=== PATIENT | female | born 1935 | race Caucasian/White ===

== ENCOUNTER → 2017-04-12 | Outpatient (CLI) | payer MEDICARE, OTHER ==
--- NOTE | 2017-04-12 11:43 | US ---
EXAM DESCRIPTION: Abdomen,Complete CLINICAL HISTORY: R10.84 COMPARISON: None Available. TECHNIQUE: Complete abdominal ultrasound FINDINGS: The liver is normal in appearance. There is no focal hepatic mass. The gallbladder is well seen and unremarkable. There are no gallstones. There is no gallbladder wall thickening. The common bile duct is normal in caliber measuring 5.9 mm. The pancreas and the spleen are unremarkable. The kidneys are normal in size, shape, and echotexture. The IVC is unremarkable. The abdominal aorta is ectatic measuring 2.2 cm proximally. IMPRESSION: 1. Today's exam demonstrates minimal ectasia and atherosclerotic disease of the abdominal aorta. The remaining study is unremarkable. Electronically signed by: Tony Paz MD 04/12/2017 11:42 AM CDT
--- NOTE | 2017-04-12 13:35 | RAD ---
EXAM DESCRIPTION: UGI CLINICAL HISTORY: 82 years Female, DYSPHAGIA COMPARISON: None. FINDINGS: Double contrast upper GI series demonstrates normal swallowing mechanism. Tertiary contractions of the esophagus are present consistent with presbyesophagus. Mild distal esophageal stricture is present with a smooth tapered narrowing at the GE junction. However, 13 mm barium tablet passes through the esophagus without delay. No hiatal hernia was observed on today's study. Stomach and duodenum are unremarkable. No mass or ulcer is observed. IMPRESSION: Presbyesophagus and mild distal esophageal stricture Electronically signed by: Lamont Ross MD 04/12/2017 1:34 PM CDT
== END | disposition home or self-care (01) ==
LOC: US 08:12
PROVIDERS: ATTEND Family Medicine
DX: R09.89 Other specified symptoms and signs involving the circulatory and respiratory systems (principal); R13.14 Dysphagia, pharyngoesophageal phase; R10.84 Generalized abdominal pain

== ENCOUNTER 2017-06-08 11:09 | Emergency (ER) | payer MEDICARE, OTHER ==
--- NOTE | 2017-06-08 11:41 | RAD ---
EXAM DESCRIPTION: Wrist,Right 3 Views CLINICAL HISTORY: 82 yearsFemale, fall, deformity, pain COMPARISON: None. IMPRESSION: The bones are severely demineralized. There is a moderately displaced and impacted acute transverse fracture in the distal metaphysis of the radius. There is dorsal displacement of the distal fracture site of up to 5 mm. There is also a mildly displaced acute oblique fracture in the distal ulnar styloid process. No evidence of dislocation. Generalized soft tissue swelling is present. Electronically signed by: Refugio Joshi MD 06/08/2017 11:40 AM CDT
[2017-06-08] MEDS ORDERED: HYDROcodone 5MG/APAP 325MG 1 EA TAB PO ONE (12:32)
[2017-06-08 12:33] VITALS: O2SAT 94
--- NOTE | 2017-06-08 12:35 | RAD ---
EXAM DESCRIPTION: Wrist,Right 3 Views CLINICAL HISTORY: BONE RESET COMPARISON: June 08, 2017 IMPRESSION: 2 views of the right wrist show comminuted, intra-articular fracture of the distal radius with improved positioning of the fracture fragments. There is resolution of the previously noted dorsal angulation of the major distal fracture fragments. Minimally displaced avulsion fracture of the ulnar styloid process. Diffuse osteopenia of the osseous structures is seen. Electronically signed by: Kyle Estrada MD 06/08/2017 12:33 PM CDT
--- NOTE | 2017-06-08 12:35 | ED.PDOC ---
History of Present Illness - General Chief Complaint: Upper Extremity Injury Time Seen by Provider: 06/08/17 12:32 Source: patient Exam Limitations: no limitations - History of Present Illness Initial Comments: the patient is an 82-year-old female presenting to the emergency room secondary to pain in her right wrist after having fallen and trying to catch herself with it. She simply tripped and fell. She does have gross deformity of the right wrist. She has neurovascularly intact. She does have a history of osteoporosis. No significant lacerations present. No loss of consciousness present. Last solid intake was approximately 4 hours ago. Last liquid intake was 3 hours ago. Tendon functions appear to be preserved. Timing/Duration: momentarily Severity: moderate Improving Factors: immobilization Worsening Factors: movement Associated Symptoms: denies symptoms Allergies/Adverse Reactions: Allergies NO KNOWN ALLERGY Allergy (Verified 06/08/17 11:19) Home Medications: Ambulatory Orders Cvemwpqvghtwo-Sqgk-Cjgchagntq [Fioricet] 1 ea PO Q4HR PRN #60 tab 06/08/17 Review of Systems - Review of Systems Constitutional: States: no symptoms reported EENTM: States: no symptoms reported Respiratory: States: no symptoms reported Cardiology: States: no symptoms reported Gastrointestinal/Abdominal: States: no symptoms reported Genitourinary: States: no symptoms reported Musculoskeletal: States: see HPI Skin: States: no symptoms reported Neurological: States: no symptoms reported All other Systems: No Change from Baseline Physical Exam - Physical Exam General Appearance: Alert, No apparent distress Eye Exam: bilateral normal Ears, Nose, Throat: hearing grossly normal, normal pharynx Neck: full range of motion, supple Respiratory: no respiratory distress, no accessory muscle use Cardiovascular/Chest: normal peripheral pulses, no edema Peripheral Pulses: radial,right: 2+, radial,left: 2+, dorsalis pedis,right: 2+, dorsalis pedis,left: 2+ Rectal Exam: deferred Extremity: no pedal edema, no calf tenderness, normal capillary refill, other - the patient has obvious swelling and deformity of the right wrist. Neurologic: fisher gill net II-XII nml as tested, alert, normal mood/affect, oriented x 3 Skin Exam: normal color - mild abrasion on the hand Comments: Vital Signs - 8 hr 06/08/17 06/08/17 11:09 11:45 Temperature 99.1 F Pulse Rate [ 98 H Left Radial] Respiratory 20 16 Rate Blood Pressure 169/89 [Left Arm] O2 Sat by Pulse 94 L Oximetry Progress - Progress Progress: 06/08/17 12:35 the patient is an 82-year-old female presenting to the emergency room secondary to a fall with a closed distal radius fracture and ulnar styloid fracture on the right with significant deformity. Risk and benefits of external reduction have been explained to the patient and she does agree to proceed. With respiratory present the patient was preoxygenated. 8 mg of etomidate were given IV. Traction and pressure were used to help achieve adequate alignment of the right radius. Longarm splinting of the right upper extremity was performed with 90 flexion at the elbow 10 flexion at the wrist and approximately 15 ulnar deviation at the wrist. She appears to be neurovascularly intact after. She tolerated moderate sedation well. Please see respiratory and nursing notes for details. Postreduction films show improved alignment. The patient needs to follow-up with orthopedics towards the end of this week for reevaluation. She does have significant osteoporosis. At followup she would likely benefit from being switched over to a long-arm cast from the rather bulky splint that is in place currently. She will be given Fioricet for pain control and can also take ibuprofen if needed. ER warnings were given for any acute worsening. Ambulate carefully to prevent further falls. - Results/Orders Results/Orders: x-ray of the right wrist show significant comminuted and moderately displaced fracture of the distal metaphysis of the radiusof the right hand. There is also a lnar styloid fracture. Departure - Departure Clinical Impression: Wrist fracture, closed Qualifiers: Encounter type: initial encounter Laterality: right Qualified Code(s): S62.101A - Fracture of unspecified carpal bone, right wrist, initial encounter for closed fracture Disposition: Discharge to Home or Self Care Condition: Fair Departure Forms: ED Discharge - Pt. Copy, Patient Portal Self Enrollment Instructions: DI for Wrist Fracture Diet: regular diet Activity: no pushing/pulling with affected limb Referrals: Herson Garcia MD [Primary Care Provider] - 1-2 Weeks Prescriptions: Opxvovmynflki-Iudt-Fdjpiirusf [Fioricet] 1 ea PO Q4HR PRN #60 tab PRN Reason: Pain Home Medications: Ambulatory Orders Jinlnirfwqcfk-Yfwd-Ekumsgqfka [Fioricet] 1 ea PO Q4HR PRN #60 tab 06/08/17 Additional Instructions: the patient is an 82-year-old female presenting to the emergency room secondary to a fall with a closed distal radius fracture and ulnar styloid fracture on the right with significant deformity. Risk and benefits of external reduction have been explained to the patient and she does agree to proceed. With respiratory present the patient was preoxygenated. 8 mg of etomidate were given IV. Traction and pressure were used to help achieve adequate alignment of the right radius. Longarm splinting of the right upper extremity was performed with 90 flexion at the elbow 10 flexion at the wrist and approximately 15 ulnar deviation at the wrist. She appears to be neurovascularly intact after. She tolerated moderate sedation well. Please see respiratory and nursing notes for details. Postreduction films show improved alignment. The patient needs to follow-up with orthopedics towards the end of this week for reevaluation. She does have significant osteoporosis. At followup she would likely benefit from being switched over to a long-arm cast from the rather bulky splint that is in place currently. She will be given Fioricet for pain control and can also take ibuprofen if needed. ER warnings were given for any acute worsening. Ambulate carefully to prevent further falls.
[2017-06-08 13:42] VITALS: BP 168/86; TEMP 98.9
== END 2017-06-08 13:00 | disposition home or self-care (01) ==
LOC: ER 11:09
DX: S52.591A Other fractures of lower end of right radius, initial encounter for closed fracture (principal); M81.0 Age-related osteoporosis without current pathological fracture; W01.0XXA Fall on same level from slipping, tripping and stumbling without subsequent striking against object, initial encounter; Y92.9 Unspecified place or not applicable

== ENCOUNTER → 2017-06-14 | Outpatient (CLI) | payer MEDICARE, OTHER ==
--- NOTE | 2017-06-14 10:51 | RAD ---
EXAM DESCRIPTION: Wrist,Right 3 Views CLINICAL HISTORY: 82 years, Female, PAIN IN RT WRIST COMPARISON: June 08, 2017 TECHNIQUE: AP/ lateral/ oblique views of the right wrist. FINDINGS: Minimally displaced fracture of the distal radius with fiberglass splint in place with very little angulation is present as well as a nondisplaced ulnar styloid fracture. Maturing callus along the radial aspect of the radial fracture is evident. Little change from prior study is noted. New injuries or dislocation is not apparent. IMPRESSION: 1. Healing distal radial fracture in nondisplaced ulnar styloid fracture. Electronically signed by: Gray Oliveira MD 06/14/2017 10:50 AM CDT
== END ==
LOC: RAD 07:51
PROVIDERS: ATTEND Orthopaedic Surgery
DX: S52.501D Unspecified fracture of the lower end of right radius, subsequent encounter for closed fracture with routine healing (principal)

== ENCOUNTER → 2017-06-21 | Outpatient (CLI) | payer MEDICARE, OTHER ==
--- NOTE | 2017-06-22 08:50 | RAD ---
EXAM DESCRIPTION: Wrist,Right 3 Views CLINICAL HISTORY: 82 years, Female, CLOSED FX-DISTAL RADIUS right wrist COMPARISON: June 14 FINDINGS: Three views obtained. The cast has been removed. The impacted intra-articular fracture distal radius is in stable alignment with some but incomplete healing. Ulnar styloid fracture also noted. IMPRESSION: Stable alignment intra-articular fracture distal radius. Incomplete healing at this time and continued follow-up recommended. Ulnar styloid fracture Electronically signed by: Alfredo Orr MD 06/22/2017 8:48 AM CDT
== END | disposition home or self-care (01) ==
LOC: RAD 09:43
PROVIDERS: ATTEND Orthopaedic Surgery
DX: S52.501A Unspecified fracture of the lower end of right radius, initial encounter for closed fracture (principal)

== ENCOUNTER → 2017-06-28 | Outpatient (CLI) | payer MEDICARE, OTHER ==
--- NOTE | 2017-06-28 20:55 | RAD ---
EXAM DESCRIPTION: Wrist,Right 3 Views CLINICAL HISTORY: 82 years, Female, CLOSED FX OF DISTAL END OF RADIUS COMPARISON: June 21 FINDINGS: Stable appearance intra-articular fracture distal radial metaphysis. Impaction and dorsal angulation. No definitely visualized radiographic healing. Ulnar styloid avulsion. Less soft tissue swelling medially around the wrist. Radiocarpal joint space slightly narrowed presumably degenerative IMPRESSION: Stable alignment intra-articular radial fracture with no clearly seen interval radiographic healing. Ulnar styloid avulsion with less soft tissue swelling medially around the wrist. Osteopenic bones Electronically signed by: Alfredo Orr MD 06/28/2017 8:54 PM CDT
== END | disposition home or self-care (01) ==
LOC: RAD 09:51
PROVIDERS: ATTEND Orthopaedic Surgery
DX: S52.501S Unspecified fracture of the lower end of right radius, sequela (principal)

== ENCOUNTER → 2017-07-12 | Outpatient (CLI) | payer MEDICARE, OTHER ==
--- NOTE | 2017-07-12 11:24 | RAD ---
EXAM DESCRIPTION: Wrist,Right 3 Views CLINICAL HISTORY: CLOSED FRACTURE OF DISTAL END OF RADIUS COMPARISON: 28 June 2017 TECHNIQUE: 3 views right FINDINGS: Soft tissue swelling is observed about the wrists. There is evidence of a fracture of the distal radial metaphysis. It is slightly impacted. Callus formation is observed at the fracture site. Prior avulsion of the ulnar styloid process is observed. Alignment of the fractures is unchanged from the previous exam. IMPRESSION: Fractures of the radius and ulna. Some callus formation is observed at the radial fracture site. Electronically signed by: Lance King MD 07/12/2017 11:23 AM CDT
== END | disposition home or self-care (01) ==
LOC: RAD 08:00
PROVIDERS: ATTEND Orthopaedic Surgery
DX: S52.501D Unspecified fracture of the lower end of right radius, subsequent encounter for closed fracture with routine healing (principal); X58.XXXA Exposure to other specified factors, initial encounter

== ENCOUNTER → 2017-07-13 | Outpatient (CLI) | payer MEDICARE, OTHER | END | disposition home or self-care (01) | LOC: GMAH 10:36 | PROVIDERS: ATTEND Family Medicine | DX: E78.2 Mixed hyperlipidemia (principal) ==

== ENCOUNTER → 2017-08-12 | Outpatient (CLI) | payer MEDICARE, OTHER ==
--- NOTE | 2017-08-13 08:08 | RAD ---
EXAM DESCRIPTION: Wrist,Right 3 Views CLINICAL HISTORY: 82 years, Female, CLOSED FX DISTAL END OF RADIUS COMPARISON: July 12, 2017 TECHNIQUE: AP/ lateral/ oblique views of the right wrist. FINDINGS: An impacted fracture of the distal radius is present with increasing sclerosis consistent with the partial but incomplete healing with little change in alignment from prior study one month earlier. An essentially nondisplaced ulnar styloid fracture is noted. No carpal dislocation is noted. Osteopenia is present. IMPRESSION: 1. Stable alignment with partial healing of impacted distal radial fracture in near-anatomic alignment Electronically signed by: Gray Oliveira MD 08/13/2017 8:07 AM CDT
== END | disposition home or self-care (01) ==
LOC: RAD 08:45
PROVIDERS: ATTEND Orthopaedic Surgery
DX: S52.501D Unspecified fracture of the lower end of right radius, subsequent encounter for closed fracture with routine healing (principal)

== ENCOUNTER → 2017-09-09 | Outpatient (CLI) | payer MEDICARE, OTHER ==
--- NOTE | 2017-09-10 12:02 | RAD ---
EXAM DESCRIPTION: Wrist,Right 3 Views CLINICAL HISTORY: 82 years,Female ,CLOSED FX OF DISTAL END OF RADIUS COMPARISON: August 12, 2017 FINDINGS: The right wrist demonstrates transverse fracture which is slightly impacted and shifted dorsally but no change since prior study and some blurring of the fracture lines indicating healing small avulsion fracture of the ulnar styloid process as well. Stable . Soft tissues appear unremarkable. Joint spaces are mild narrowing of the radiocarpal row. And mild abutment of the ulna on the lunate and moderate loss of joint space at the base of the first metatarsal carpal. IMPRESSION: Healing transverse fracture the distal right radius with mild displacement which is stable. Mild arthritic changes between the radiocarpal row., There is some early ulnar abutment to the lunate., And moderate arthritic changes at the base of the first metacarpal Electronically signed by: Lance Leroy MD 09/10/2017 12:01 PM CDT
== END | disposition home or self-care (01) ==
LOC: RAD 08:20
PROVIDERS: ATTEND Orthopaedic Surgery
DX: S52.501D Unspecified fracture of the lower end of right radius, subsequent encounter for closed fracture with routine healing (principal); X58.XXXA Exposure to other specified factors, initial encounter

== ENCOUNTER → 2018-05-25 | Outpatient (CLI) | payer MEDICARE, OTHER ==
--- NOTE | 2018-05-25 13:31 | US ---
THYROID ULTRASOUND CLINICAL INFORMATION: This TECHNIQUE: Routine transcutaneous scannin-D and Doppler modes. COMPARISON: None. FINDINGS: Thyroid size: Right 4.6 x 2.4 x 2.0 cm. Left 3.4 x 1.3 x 0.9 cm. Isthmus 2.5 mm thickness. Texture: Heterogeneous Estimated total number of nodules >/=1 cm: 2 Number of spongiform nodules >/=2 cm not described below (TR1): 0 Number of mixed cystic and solid nodules >/=1.5 cm not described below (TR2): 0 Nodule #: 1 Maximum size: 1.7 cm; All dimensions 1.2 x 0.9 cm Location: right; mid Composition: solid/almost completely solid (2) Echogenicity: hypoechoic (2) Shape: not lsrioy-[id number]-ekhy (0) Margins: smooth (0) Echogenic foci: none (0) ACR TI-RADS total points: 4. ACR TI-RADS risk category: TR4 (4-6 points) ACR TI-RADS recommendation: Ultrasound-guided fine needle aspiration Nodule #: 2 Maximum size: 1.3 cm; All dimensions 1.1 x 0.8 cm Location: right; lower Composition: solid/almost completely solid (2) Echogenicity: hypoechoic (2) Shape: not asdjqn-qwgx-zwwp (0) Margins: ill-defined (0) Echogenic foci: none (0) ACR TI-RADS total points: 4. ACR TI-RADS risk category: TR4 (4-6 points) ACR TI-RADS recommendation: Follow-up ultrasound in 1 year Nodule #: 3 Maximum size: 0.5 cm; All dimensions 0.4 x 0.4 cm Location: left; upper Composition: mixed cystic and solid (1) Echogenicity: very hypoechoic (3) Shape: not fxminn-buyv-rtut (0) Margins: smooth (0) Echogenic foci: none (0) ACR TI-RADS total points: 4. ACR TI-RADS risk category: TR4 (4-6 points) ACR TI-RADS recommendation: No further follow-up Nodule #: 4 Maximum size: 0.7 cm; All dimensions 0.6 x 0.5 cm Location: left; mid Composition: solid/almost completely solid (2) Echogenicity: hypoechoic (2) Shape: not ruihus-aelk-zppn (0) Margins: ill-defined (0) Echogenic foci: none (0) ACR TI-RADS total points: 4. ACR TI-RADS risk category: TR4 (4-6 points) ACR TI-RADS recommendation: No further follow-up Soft tissue around the thyroid gland: No distinct solid mass or cyst. No large calcifications or parenchymal edema. Normal vascularity. No overlying skin changes. IMPRESSION: 1. Hypoechoic 1.7 cm solid nodule (# 1) in the mid right lobe. ACR TI-RADS risk category TR 4. Ultrasound-guided fine-needle aspiration sampling is recommended. Please see below.* 2. 1.2 cm hypoechoic solid nodule (# 2) in the lower right lobe. ACR TI-RADS risk category TR 4. Ultrasound follow-up in one year is recommended. 3. Nodules in the left lobe (nodules # 3 and # 4) with TI-RADS risk category TR 4. Less than 1 cm diameter, so no ultrasound follow-up is recommended. *ACR TI-RADS recommendations: TR5 (>/=7 points) - FNA if >/=1 cm, follow-up if 0.5 - 0.9 cm every year for 5 years TR4 (4-6 points) - FNA if >/=1.5 cm, follow-up if 1 - 1.4 cm in 1, 2, 3 and 5 years TR3 (3 points) - FNA if >/=2.5 cm, follow -up if 1.5 - 2.4 cm in 1, 3 and 5 years TR2 (2 points) and TR1 (0 points) - No FNA or follow-up * ACR TI-RADS recommends that no more than two nodules with the highest ACR TI-RADS total point should be biopsied and no more than four nodules should be followed. Electronically signed by: Akash Anne MD 05/25/2018 1:30 PM CDT
== END ==
LOC: US 09:09
PROVIDERS: ATTEND Family Medicine
DX: E04.1 Nontoxic single thyroid nodule (principal)

== ENCOUNTER → 2018-08-05 | Outpatient (CLI) | payer MEDICARE, OTHER ==
--- NOTE | 2018-08-05 11:05 | CT ---
EXAM DESCRIPTION: Abdoment/Pelvis w/o Contrast CLINICAL HISTORY: 83 years Female, LEFT UPPER QUADRANT PAIN COMPARISON: None available. TECHNIQUE: Contiguous 3 mm axial images were obtained from the lung bases to the level of the proximal femora without the administration of intravenous or oral contrast. Sagittal and coronal reconstructions were reviewed. FINDINGS: Limited evaluation of the solid organs due to the lack of intravenous contrast. THORAX: The imaged lower thorax demonstrates no gross abnormality. LIVER: The liver demonstrates normal size and density with no intrahepatic biliary ductal dilatation. GALLBLADDER: Surgically absent PANCREAS: Appears normal with no cystic or solid lesions. SPLEEN: Normal ADRENAL GLANDS: Normal with no nodules or masses. KIDNEYS: 3 mm nonobstructive calculus is noted in the interpolar region of the right kidney. No hydronephrosis or nephrolithiasis or perinephric fluid collections bilaterally. The visualized ureters appear grossly unremarkable. STOMACH: The stomach is well-distended with no gross abnormality. SMALL BOWEL: The small bowel loops demonstrate variable degrees of distention with no abnormal dilatation or other signs to suggest bowel obstruction. LARGE BOWEL: Numerous diverticula are noted throughout the sigmoid colon with no evidence of acute inflammation. Remainder of the colon is not well-visualized. The appendix is well-visualized and appears normal No evidence of free intraperitoneal air or fluid. RETROPERITONEUM: The abdominal aorta is nonaneurysmal with mild atherosclerosis. The inferior vena cava is normal in size and caliber. No abnormally enlarged retroperitoneal lymph nodes are identified. URINARY BLADDER:The urinary bladder is well-distended with no gross abnormality. The uterus is surgically absent. Loculated fluid density lesion measuring 6.3 x 3.2 cm noted in the right adnexal region. This could represent an ovarian cyst versus loculated free fluid. ADDITIONAL FINDINGS: None. BONES: Mild degenerative changes are identified in the visualized bones. Minimal anterolisthesis of L4 over L5 is noted. IMPRESSION: 1. 3 mm nonobstructive calculus is noted in the interpolar region of the right kidney. 2. Colonic diverticulosis. 3. Loculated fluid density lesion measuring 6.3 x 3.2 cm noted in the right adnexal region. This could represent an ovarian cyst versus loculated free fluid. Gynecologic consultation and correlation with surgical history is recommended. This exam was performed according to our departmental dose-optimization program, which includes automated exposure control, adjustment of the mA and/or kV according to patient size and/or use of iterative reconstruction technique. Electronically signed by: Renu Huggins MD 08/05/2018 11:03 AM CDT
== END ==
LOC: CT 09:00
PROVIDERS: ATTEND Family Medicine
DX: R10.12 Left upper quadrant pain (principal); N20.0 Calculus of kidney; K57.30 Diverticulosis of large intestine without perforation or abscess without bleeding

== ENCOUNTER → 2019-03-10 | Outpatient (CLI) | payer MEDICARE, OTHER ==
--- NOTE | 2019-03-11 09:58 | US ---
EXAM DESCRIPTION: Pelvic,Non-OB: Ultrasound. 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 Hysterectomy. COMPARISON: CT abdomen and pelvis 08/05/2018. TECHNIQUE: Transcutaneous scanning through the urine filled bladder. Stanton-scale and Doppler modes. FINDINGS: Uterus surgically absent. Cul-de-sac contains no fluid. Right ovary 5.8 x 4.0 x 3.9 cm. 47.1 mL. Minimal color Doppler vascularity. 3.2 x 3.0 x 4.2 cm cyst. 3.2 x 2.8 x 2.5 cm cyst. Nonvascular. No wall thickening septations or large calcifications. No adnexal mass or free fluid. Left ovary not visualized. No adnexal mass or free fluid. IMPRESSION: Enlarged right ovary with 2 simple cysts. No solid mass or fluid in the cul-de-sac or adnexa. [facility] Best Practice recommendations for follow-up of ovarian simple cysts: One year follow-up ultrasound, MRI with and without IVC, or surgical evaluation. Please see below.* *Recommendations for f/u of ovarian anechoic simple cyst, simple cyst with single thin <3 mm septation, or focal calcification in wall of cyst (1): Pre-menopause: <= 5 cm No follow-up imaging recommended >5 cm - <=7 cm US f/u annually >7 cm Consider MR w/IVC or surgical evaluation Post-menopause (>=1 year from last menstrual period): <=3 cm No follow-up imaging recommended >3 cm - <=7 cm US f/u annually >7 cm Consider MR w/IVC or surgical evaluation (1) Recommendations based on 2010 SRU Consensus Conference Statement on the Management of Asymptomatic Ovarian and Other Adnexal Cysts Imaged at US: Radiology. 2009;256(3):943-54 Electronically signed by: Akash Anne MD 03/11/2019 9:55 AM CDT
== END ==
LOC: US 09:00
PROVIDERS: ATTEND Family Medicine
DX: N83.201 Unspecified ovarian cyst, right side (principal)

== ENCOUNTER 2019-03-31 19:57 | Emergency (ER) | payer MEDICARE, OTHER ==
[2019-03-31 20:12] VITALS: TEMP 97.8
[2019-03-31 21:14] VITALS: O2SAT 97
--- NOTE | 2019-03-31 21:35 | CT ---
EXAM: CT Abdomen and Pelvis Without Intravenous Contrast CLINICAL HISTORY: 84 years old and is Female; LLQ pain with BRBPR TECHNIQUE: Axial computed tomography images of the abdomen and pelvis without intravenous contrast. Sagittal and coronal reformatted images were created and reviewed. This CT exam was performed using one or more of the following dose reduction techniques: automated exposure control, adjustment of the mA and/or kV according to patient size, and/or use of iterative reconstruction technique. COMPARISON: Comparison 08/05/2018. FINDINGS: Limitations: None. Lung bases: Unremarkable. No mass. No consolidation. ABDOMEN: Liver: See below. Gallbladder and bile ducts: Gallbladder conforms partially to the inferior liver. No calcified stones. No ductal dilation. Pancreas: Unremarkable. No ductal dilation. Spleen: Unremarkable. No splenomegaly. Adrenals: Unremarkable. No mass. Kidneys and ureters: There is a single approximately 2 mm stone in each kidney. No hydronephrosis. Stomach and bowel: Large amounts of colonic stool present there is colonic diverticulosis. No inflammatory process or intestinal obstruction. There is inspissated contrast within multiple sigmoid diverticula. No evidence of acute gastrointestinal hemorrhage. No mucosal thickening. PELVIS: Appendix: No findings to suggest acute appendicitis. Bladder: Unremarkable. No stones. Reproductive: Unremarkable as visualized. ABDOMEN and PELVIS: Intraperitoneal space: Unremarkable. No free air. No significant fluid collection. Bones/joints: No acute fracture. No dislocation. Soft tissues: Unremarkable. Vasculature: Unremarkable. No abdominal aortic aneurysm. Lymph nodes: Unremarkable. No enlarged lymph nodes. IMPRESSION: No acute findings. Electronically signed by: sEtela Nix MD 03/31/2019 9:33 PM CDT
--- NOTE | 2019-03-31 21:41 | ED.PDOC ---
History of Present Illness - General Chief Complaint: GI Problem Stated Complaint: blood in stool Time Seen by Provider: 03/31/19 20:27 Information Source: patient Exam Limitations: no limitations - History of Present Illness Initial Comments: patient comes in today with 1 day history of bright red blood per rectum with bowel movements. Patient states she was in her usual health when she had bowel movement this morning that looked like it had some blood that was bright red mixed in the stool. It was not particularly painful nor has she suffered from constipation. She did have some fruit juice today for constipation she was experiencing a couple of days ago and thought that perhaps that was what it was. However, this evening she had another bowel movement with a more significant blood loss that she could see easily in the bowel movement. She states she does not have any abdominal pain but does have some soreness in the left lower quadrant. She's had no nausea or emesis. She has no fever or chills. She's never had this before. She has in the past her past medical history for breast cancer and diverticulosis. Patient denies any fever or chills. She's had no mucus in the stools. Abdominal Pain Onset Location: LLQ Pain Radiation: no radiation Quality: mild Timing/Duration: 24 hours Improving Factors: nothing Worsening Factors: nothing Associated Symptoms: denies symptoms Review of Systems - Review of Systems Constitutional: States: no symptoms reported. Denies: chills, fever EENTM: States: no symptoms reported. Denies: eye pain, ear pain, nose congestion Respiratory: States: no symptoms reported. Denies: cough, short of breath Cardiology: States: no symptoms reported. Denies: chest pain, palpitations Gastrointestinal/Abdominal: States: see HPI, other Genitourinary: States: no symptoms reported Past Medical History (General) - Patient Medical History Hx Stroke: No Hx Cardiac Disorders: Yes - hypercholesterolemia Hx Congestive Heart Failure: No Hx Hypertension: Yes Hx Diabetes: No Hx Cancer: Yes - L breast Surgical History: other - Vaccination History Hx Tetanus, Diphtheria Vaccination: No Hx Influenza Vaccination: Yes - 2016 Hx Pneumococcal Vaccination: Yes - 2016 - Social History Hx Tobacco Use: No Family Medical History - Family History Mother Living Status: Cause of : cardiac in nature Physical Exam - Physical Exam General Appearance: Alert, Comfortable, No apparent distress Eyes, Ears, Nose, Throat Exam: PERRL/EOMI, normal ENT inspection, TMs normal Neck: non-tender, full range of motion, supple, normal inspection Respiratory: chest non-tender, lungs clear, normal breath sounds, no respiratory distress Cardiovascular/Chest: normal peripheral pulses, regular rate, rhythm, no edema, no murmur Peripheral Pulses: No deficit Gastrointestinal/Abdominal: soft, abnormal bowel sounds - hyperactive, tenderness - mild ttp to LLQ without fullness, rebound or guarding Neurologic: alert, oriented x 3 Progress - Progress Progress: 03/31/19 22:07 still with some bleeding with bowel movement, no acute pain. slip mixer here consulted and no GI or surgery available for consult. Will transfer care - Results/Orders Results/Orders: 03/31/19 20:27 Abdomen Flat & Upright [RAD] Stat Laboratory Results WBC 3.8 K/mm3 (4.8-10.8) L 03/31/19 08:35 RBC 4.37 M/mm3 (4.20-5.40) 03/31/19 08:35 Hgb 13.0 gm/dL (12.0-16.0) 03/31/19 08:35 Hct 39.1 % (36.0-47.0) 03/31/19 08:35 MCV 89.5 fl (81.0-99.0) 03/31/19 08:35 MCH 29.8 pg (27.0-31.0) 03/31/19 08:35 MCHC 33.2 g/dL (33.0-37.0) 03/31/19 08:35 RDW 14.4 % (11.5-14.5) 03/31/19 08:35 Plt Count 173 K/mm3 (130-400) 03/31/19 08:35 MPV 6.9 fl (7.40-10.4) L 03/31/19 08:35 Absolute Neuts (auto) 2.50 K/uL (1.8-6.8) 03/31/19 08:35 Absolute Lymphs (auto) 0.80 K/uL (1.0-3.4) L 03/31/19 08:35 Absolute Monos (auto) 0.30 K/uL (0.2-0.8) 03/31/19 08:35 Absolute Eos (auto) 0.10 K/uL (0.0-0.4) 03/31/19 08:35 Absolute Basos (auto) 0.00 K/uL (0.0-0.1) 03/31/19 08:35 Neutrophils % 67.1 % (42.0-78.0) 03/31/19 08:35 Lymphocytes % 20.1 % (20.0-50.0) 03/31/19 08:35 Monocytes % 8.6 % (2.0-9.0) 03/31/19 08:35 Eosinophils % 3.2 % (1.0-5.0) 03/31/19 08:35 Basophils % 1.0 % (0.0-2.0) 03/31/19 08:35 PT 10.7 SECONDS (9.0-10.9) 03/31/19 08:35 INR 1.07 (0.9-1.15) 03/31/19 08:35 PTT (SP) 25.3 SECONDS (21.8-31.6) 03/31/19 08:35 Sodium 141 mmol/L (135-145) 03/31/19 08:35 Potassium 3.9 mmol/L (3.6-5.0) 03/31/19 08:35 Chloride 109 mmol/L (101-111) 03/31/19 08:35 Carbon Dioxide 24 mmol/L (21-31) 03/31/19 08:35 Anion Gap 11.9 (12-18) L 03/31/19 08:35 BUN 27 mg/dL (7-18) H 03/31/19 08:35 Creatinine 0.87 mg/dL (0.6-1.3) 03/31/19 08:35 BUN/Creatinine Ratio 31.0 (10-20) H 03/31/19 08:35 Random Glucose 106 mg/dL (70-105) H 03/31/19 08:35 Serum Osmolality 286.8 mOsm/L (275-295) 03/31/19 08:35 Calcium 9.4 mg/dL (8.4-10.2) 03/31/19 08:35 Total Bilirubin 0.8 mg/dL (0.2-1.0) 03/31/19 08:35 AST 23 IU/L (10-42) 03/31/19 08:35 ALT 15 IU/L (10-60) 03/31/19 08:35 Alkaline Phosphatase 60 IU/L (42-121) 03/31/19 08:35 Serum Total Protein 7.1 gm/dL (6.4-8.2) 03/31/19 08:35 Albumin 3.8 g/dl (3.2-5.5) 03/31/19 08:35 Globulin 3.3 gm/dL (2.3-3.5) 03/31/19 08:35 Albumin/Globulin Ratio 1.2 (1.1-1.9) 03/31/19 08:35 Stool Occult Blood Positive (NEGATIVE) 03/31/19 08:35 Patient Name: SASHA PLAZA Gender: Female Date of : 1935 Referring Physician: VINNIE PATEL Organization: [facility] Accession Number: [id number] Requested Date: March 31, 2019 20:30 Report Status: Final Requested Procedure: 1 Procedure Description: Abdoment/Pelvis w/o Contrast Modality: CT Findings Reporting MD: Estela Nix MD: Not available Dictation Time: Library Circulation Department Chief: Not available [employer] Director Date: EXAM: CT Abdomen and Pelvis Without Intravenous Contrast CLINICAL HISTORY: 84 years old and is Female; LLQ pain with BRBPR TECHNIQUE: Axial computed tomography images of the abdomen and pelvis without intravenous contrast. Sagittal and coronal reformatted images were created and reviewed. This CT exam was performed using one or more of the following dose reduction techniques: automated exposure control, adjustment of the mA and/or kV according to patient size, and/or use of iterative reconstruction technique. COMPARISON: Comparison 08/05/2018. FINDINGS: Limitations: None. Lung bases: Unremarkable. No mass. No consolidation. ABDOMEN: Liver: See below. Gallbladder and bile ducts: Gallbladder conforms partially to the inferior liver. No calcified stones. No ductal dilation. Pancreas: Unremarkable. No ductal dilation. Spleen: Unremarkable. No splenomegaly. Adrenals: Unremarkable. No mass. Kidneys and ureters: There is a single approximately 2 mm stone in each kidney. No hydronephrosis. Stomach and bowel: Large amounts of colonic stool present there is colonic diverticulosis. No inflammatory process or intestinal obstruction. There is inspissated contrast within multiple sigmoid diverticula. No evidence of acute gastrointestinal hemorrhage. No mucosal thickening. PELVIS: Appendix: No findings to suggest acute appendicitis. Bladder: Unremarkable. No stones. Reproductive: Unremarkable as visualized. ABDOMEN and PELVIS: Intraperitoneal space: Unremarkable. No free air. No Radiology [employer] [address] [place] [address], [address] [place], [place] T [phone] F [phone] [email or web address] - Report exported on March 31, 2019 21:40:17 [id number] - Page 2 of 2 significant fluid collection. Bones/joints: No acute fracture. No dislocation. Soft tissues: Unremarkable. Vasculature: Unremarkable. No abdominal aortic aneurysm. Lymph nodes: Unremarkable. No enlarged lymph nodes. IMPRESSION: No acute findings. Departure - Departure Clinical Impression: Bright red blood per rectum Disposition: Transfer to Hospital Condition: Fair Departure Forms: ED Discharge - Pt. Copy, Patient Portal Self Enrollment Referrals: Herson Garcia MD [Primary Care Provider] - 1-2 Weeks Home Medications: Ambulatory Orders Ascorbic Acid [Vitamin C] 1,000 mg PO DAILY 03/31/19 Calcium Carb 500Mg-Vitamin D [Oscal 500mg w/D] 500 mg PO DAILY 03/31/19 Ezetimibe 10 mg PO DAILY 03/31/19 Fosinopril Sodium 20 mg PO DAILY 03/31/19 Naproxen Sodium [Aleve] 220 mg PO DAILY PRN 03/31/19 Pantoprazole Tablet [Protonix] 40 mg PO ACBK 03/31/19 Sucralfate Suspension [Carafate Suspension] 1 gm PO BID 03/31/19 Zoledronic Acid [Reclast] 5 mg IV ONCE 03/31/19 Transfer to Outside Facility - Transfer Information Accepting Facility: [facility] Reason for Transfer: specialized care not available
[2019-03-31 22:08] VITALS: BP 150/96
== END 2019-03-31 22:54 | disposition short-term general hospital (02) ==
LOC: ER 19:57
DX: K62.5 Hemorrhage of anus and rectum (principal); R10.32 Left lower quadrant pain; E78.00 Pure hypercholesterolemia, unspecified; I10 Essential (primary) hypertension; Z85.3 Personal history of malignant neoplasm of breast

== ENCOUNTER → 2019-04-07 | Outpatient (CLI) | payer MEDICARE, OTHER | LOC: GMAH 13:50 | PROVIDERS: ATTEND Family Medicine | DX: R97.8 Other abnormal tumor markers (principal); D39.10 Neoplasm of uncertain behavior of unspecified ovary; K92.2 Gastrointestinal hemorrhage, unspecified ==

== ENCOUNTER → 2019-08-28 | Outpatient (CLI) | payer MEDICARE, OTHER | LOC: GMA MATASK 10:29 | PROVIDERS: ATTEND Family Medicine | DX: E03.2 Hypothyroidism due to medicaments and other exogenous substances (principal); I10 Essential (primary) hypertension; E78.2 Mixed hyperlipidemia ==

== ENCOUNTER → 2020-09-03 | Outpatient (CLI) | payer MEDICARE, OTHER | LOC: GMA MATASK 10:29 | PROVIDERS: ATTEND Family Medicine | DX: E78.2 Mixed hyperlipidemia (principal); I10 Essential (primary) hypertension ==

== ENCOUNTER → 2020-09-04 | Outpatient (CLI) | payer MEDICARE, OTHER ==
--- NOTE | 2020-09-06 16:34 | MAM ---
EXAM DESCRIPTION: 3D Screening BILATERAL : Digital Mammography. CLINICAL HISTORY: 85 years Female ANNUAL SCREENING breast cancer in 1980 with left mastectomy. No family history of breast cancer. Lifetime risk of developing breast cancer (Tyrer-Cuzick model)(%): Not calculated due to personal history of breast cancer. COMPARISON: Baseline study at this facility.. TECHNIQUE: Right breast CC and MLO projection full-field images, digital tomosynthesis mammographic technique. Right breast digital 2-D full-field MLO images. CAD available for 2-D images. FINDINGS: Right breast parenchymal density pattern is: Heterogeneously dense breast tissue, which may obscure small masses. No skin thickening or nipple retraction. Solitary microcalcifications. No focal, stellate mass or density, focal asymmetry , and no suspicious microcalcifications right breast. IMPRESSION: Benign exam. BIRAD CATEGORY: 2 BENIGN FINDINGS. RECOMMENDATIONS: FOLLOW UP: Routine digital bilateral mammographic screening, one year interval from August 2020. Written communication explaining the IMPRESSION and follow-up, will be mailed to the patient and referring health care provider. According to the [employer], yearly mammograms are recommended starting at age 40 and continuing as long as a woman is in good health. Any breast change noted on a breast self-exam should be reported promptly to the patient's healthcare provider. Breast MRI is recommended for women with an approximately 20-25% or greater lifetime risk of breast cancer, including women with a strong family history of breast or ovarian cancer and women who have been treated for Hodgkin's disease. A negative mammographic report should not delay tissue diagnosis in patients with significant clinical history or physical findings. Extremely dense breast tissue limits the sensitivity of digital mammography. Electronically signed by: Akash Anne MD 09/06/2020 4:32 PM CDT
== END ==
LOC: MAMMO 13:08
PROVIDERS: ATTEND Family Medicine
DX: Z12.31 Encounter for screening mammogram for malignant neoplasm of breast (principal)